=== PATIENT | female | born 1990 | race Caucasian/White ===

== ENCOUNTER 2021-07-30 20:58 | Emergency (ER) | payer OTHER ==
[~2021-07-30] VITALS: Ht 157.5 cm; Wt 40.8 kg
[2021-07-31 01:30] VITALS: BP 124/85
== END 2021-07-31 02:02 | disposition home or self-care (01) ==
LOC: ER 21:04
DX: S06.0X0A Concussion without loss of consciousness, initial encounter (principal); R42 Dizziness and giddiness; R51.9 Headache, unspecified; Y08.89XA Assault by other specified means, initial encounter; Y93.89 Activity, other specified; Y92.89 Other specified places as the place of occurrence of the external cause; Y99.8 Other external cause status
CPT/HCPCS: 70450; 70486

== ENCOUNTER 2021-11-12 01:20 | Emergency (ER) | payer MEDICAID, OTHER ==
[~2021-11-12] VITALS: Ht 157.5 cm; Wt 45.4 kg
[2021-11-12 02:00] LABS: Urine Bacteria MOD /hpf (None Seen); Urine Blood Negative /uL (Negative); Urine Mucus FEW (None Seen); Urine Specific Gravity 1.018 (1.001-1.035); Urine WBC 196 /hpf (0 - 5)
[2021-11-12 02:57] LABS: Basophils # (auto) 0 10 ^3/uL (0-0.2); Basophils % (auto) 0.4 % (0.0-2.0); Eosinophils # (auto) 0 10 ^3/uL (0-0.8); Eosinophils % (auto) 0.2 % (0.0-7.0); Hematocrit 36.8 % (36.0-46.0); Hemoglobin 12.7 g/dL (12.2-16.2); Lymphocytes # (auto) 2.6 10 ^3/uL (0.4-5.4); Lymphocytes % (auto) 20.3 % (10.0-50.0); Mean Corpuscular Hemoglobin 32.9 pg (28.0-32.0); Mean Corpuscular Hgb Conc. 34.5 g/dL (32.0-36.0); Mean Corpuscular Volume 95.2 fL (80.0-100.0); Monocytes # (auto) 0.5 10 ^3/uL (0-1.3); Monocytes % (auto) 3.6 % (0.0-12.0); Neutrophils # (auto) 9.8 10 ^3/uL (1.6-8.6); Neutrophils % (auto) 75.5 % (37.0-80.0); Red Blood Cells 3.86 10^6/uL (4.0-5.20); Red Cell Distribution Width 13.9 % (11.8-14.3); White Blood Cell 12.9 10^3/uL (4.4-10.8)
[2021-11-12 03:01] LABS: Albumin 3.4 g/dL (3.4-5.0); BUN/Creatinine Ratio 15.6; Calcium 10.1 mg/dL (8.5-10.1); Potassium 3.5 mmol/L (3.5-5.1)
[2021-11-12 03:05] LABS: Bilirubin, Total 0.4 mg/dL (0.2-1.0)
[2021-11-12 10:00] VITALS: BP 96/42
[2021-11-12] MEDS ORDERED: ACETAMINOPHEN 325 MG TAB PO ONE (10:30)
[2021-11-12] MEDS ORDERED: cefTRIAXone 1GM/50ML D5W 50 ML IV ONE (10:30)
== END 2021-11-13 10:33 | disposition left against medical advice (07) ==
LOC: ER 01:33
DX: O21.8 Other vomiting complicating pregnancy (principal); Z3A.01 Less than 8 weeks gestation of pregnancy; Z53.21 Procedure and treatment not carried out due to patient leaving prior to being seen by health care provider
CPT/HCPCS: 36415; 80053; 81001; 84702; 85025